=== PATIENT | female | born 1970 | race Caucasian/White ===

== ENCOUNTER 2022-11-10 19:40 | Emergency (ER) | payer OTHER ==
[~2022-11-10] VITALS: Ht 157.5 cm; Wt 92.5 kg
[2022-11-11] MEDS ORDERED: diazePAM 10MG/2ML SYRINGE IM ONE (04:05)
[2022-11-11] MEDS ORDERED: KETOROLAC 60MG 2ML VIAL IM ONE (04:25)
[2022-11-11 04:35] LABS: BASO # 0.1 10^3/uL (0.0-0.2); BASO % 0.7 % (0.0-1.0); EOS # 0.2 10^3/uL (0.0-0.5); EOS % 1.1 % (0.0-3.0); HEMATOCRIT 42.7 % (36.0-47.0); LYMPH # 4.8 10^3/uL (1.5-5.0); LYMPH % 29.8 % (24.0-44.0); MEAN CORPUSCULAR HEMOGLOBIN 27.8 pg (27.0-33.0); MEAN CORPUSCULAR HGB CONC 32.8 g/dl (32.0-36.5); MEAN CORPUSCULAR VOLUME 84.9 fl (80.0-96.0); MONO # 0.6 10^3/uL (0.0-0.8); MONO % 3.7 % (2.0-8.0); NEUTROPHILS # 10.4 10^3/uL (1.5-8.5); NEUTROPHILS % 64.3 % (36.0-66.0); PLATELET COUNT, AUTOMATED 471 10^3/uL (150-450); RED BLOOD COUNT 5.03 10^6/uL (4.00-5.40); WHITE BLOOD COUNT 16.2 10^3/uL (4.0-10.0)
[2022-11-11 04:50] LABS: ERYTHROCYTE SEDIMENTATION RATE 54 mm/hr (0-30)
[2022-11-11 04:57] LABS: BLOOD UREA NITROGEN 23 MG/DL (9-23); CALCIUM LEVEL 9.5 MG/DL (8.5-10.1); CARBON DIOXIDE LEVEL 24 MMOL/L (20-31); CHLORIDE LEVEL 101 MMOL/L (98-107); CREATININE FOR GFR 0.51 MG/DL (0.55-1.30); GLOMERULAR FILTRATION RATE > 60.0 (>51); GLUCOSE, FASTING 112 MG/DL (60-100); POTASSIUM SERUM 4.4 MMOL/L (3.5-5.1); SODIUM LEVEL 137 MMOL/L (136-145)
[2022-11-11 05:55] VITALS: BP 162/69
[2022-11-11] MEDS ORDERED: VALI2TAB PO ×2 (07:38→07:40)
[2022-11-11] MEDS ORDERED: CYCL5TAB PO (07:38)
[2022-11-12] MEDS ORDERED: UNRESOLVED CLARIFICATION ENTRY XX SCH (00:01)
== END 2022-11-11 08:38 | disposition home or self-care (01) ==
LOC: M ED 19:40
DX: M54.30 Sciatica, unspecified side (principal); M43.16 Spondylolisthesis, lumbar region; F41.9 Anxiety disorder, unspecified; M51.36 Other intervertebral disc degeneration, lumbar region; Z79.899 Other long term (current) drug therapy

== ENCOUNTER 2022-11-28 11:41 | Inpatient (IN) | payer OTHER ==
[~2022-11-28] VITALS: Ht 152.4 cm; Wt 96.2 kg
[~2022-11-28 11:41] MED LIST: AMLO1TAB25 PO; COLA100C5 PO; CYCL5TAB PO; DIPHCR TOP; GABA-1171 PO; GABA-282 PO; PERCOCET PO; RAME8TAB2 PO; TRAM50TA2 PO; VALI2TAB PO
[2022-11-28 16:00] VITALS: BP 132/79
[2022-11-28] MEDS: GABAPENTIN 300 MG CAP PO SCH (16:20)
[2022-11-28] MEDS: ACETAMINOPHEN TAB 650MG DOSE (2X325MG) PO PRN (18:19)
[2022-11-28] MEDS: DOCUSATE SODIUM 100MG CAPSULE PO SCH (20:01)
[2022-11-28] MEDS: SENNA 8.6 MG TAB (SENOKOT) PO SCH (20:02)
[2022-11-28] MEDS: GABAPENTIN 400MG CAP PO SCH (20:02)
[2022-11-28] MEDS: traMADol 50 MG TAB PO PRN (20:12)
[2022-11-28] MEDS ORDERED: ANALGESIC BALM CRM 3OZ TOP SCH (21:00)
[2022-11-28] MEDS ORDERED: RAMELTEON 8 MG TAB (ROZEREM) PO SCH (21:00)
[2022-11-29 04:51] VITALS: BP 138/79
[2022-11-29] MEDS: traMADol 50 MG TAB PO PRN ×2 (04:56→20:04)
[2022-11-29 06:17] LABS: HEMATOCRIT 38.6 % (36.0-47.0); HEMOGLOBIN 12.3 g/dl (12.0-15.5); MEAN CORPUSCULAR HEMOGLOBIN 27.3 pg (27.0-33.0); MEAN CORPUSCULAR HGB CONC 31.9 g/dl (32.0-36.5); MEAN CORPUSCULAR VOLUME 85.8 fl (80.0-96.0); PLATELET COUNT, AUTOMATED 390 10^3/uL (150-450); WHITE BLOOD COUNT 6.9 10^3/uL (4.0-10.0)
[2022-11-29 06:32] LABS: ALBUMIN 2.8 G/DL (3.2-5.2); ALKALINE PHOSPHATASE 51 U/L (46-116); ALT/SGPT 29 U/L (7.0-40); AST/SGOT 17 U/L (<34); BILIRUBIN,TOTAL 0.2 MG/DL (0.3-1.2); BLOOD UREA NITROGEN 13 MG/DL (9-23); CALCIUM LEVEL 8.7 MG/DL (8.5-10.1); CARBON DIOXIDE LEVEL 26 MMOL/L (20-31); CHLORIDE LEVEL 101 MMOL/L (98-107); CREATININE FOR GFR 0.39 MG/DL (0.55-1.30); GLOMERULAR FILTRATION RATE > 60.0 (>51); GLUCOSE, FASTING 102 MG/DL (60-100); SODIUM LEVEL 135 MMOL/L (136-145); TOTAL PROTEIN 7.9 G/DL (5.7-8.2)
[2022-11-29 07:01] LABS: ATYPICAL LYMPH 5 % (0-5); BASOPHILS 1 % (0-1); EOSINOPHILS 7 % (0-3); LYMPHOCYTES 27 % (16-44); MONOCYTES 9 % (0-5); NEUTROPHILS 51 % (28-66); PLATELET ESTIMATE NORMAL (NORMAL)
[2022-11-29] MEDS ORDERED: predniSONE 20 MG TAB PO ONE (08:30)
[2022-11-29] MEDS: DOCUSATE SODIUM 100MG CAPSULE PO SCH ×2 (08:50→20:04)
[2022-11-29] MEDS: GABAPENTIN 300 MG CAP PO SCH ×2 (08:51→14:45)
[2022-11-29] MEDS: ENOXAPARIN 40MG/0.4ML SYRINGE (J1650 PER 10MG) SC SCH (08:51)
[2022-11-29] MEDS: PANTOPRAZOLE 40MG TAB (PROTONIX) PO SCH (08:51)
[2022-11-29 14:00] VITALS: BP 120/67
[2022-11-29] MEDS: diphenhydrAMINE CREAM 30GM TOP SCH ×2 (14:46→20:07)
[2022-11-29] MEDS ORDERED: FLEET ENEMA PR ONE (15:45)
[2022-11-29] MEDS ORDERED: AMITRIPTYLINE 10MG TABLET PO ONE (16:00)
[2022-11-29] MEDS: SIMETHICONE 80MG CHEW TAB PO SCH ×2 (16:19→20:04)
[2022-11-29] MEDS: BISACODYL 5MG TAB PO SCH (16:21)
[2022-11-29 20:00] VITALS: BP 138/72
[2022-11-29] MEDS: SENNA 8.6 MG TAB (SENOKOT) PO SCH (20:04)
[2022-11-29] MEDS: GABAPENTIN 400MG CAP PO SCH (20:04)
[2022-11-29] MEDS ORDERED: AMITRIPTYLINE 10MG TABLET PO SCH (21:00)
[2022-11-30] MEDS: RAMELTEON 8 MG TAB (ROZEREM) PO PRN ×2 (00:21→21:21)
[2022-11-30] MEDS: ACETAMINOPHEN TAB 650MG DOSE (2X325MG) PO PRN (00:21)
[2022-11-30 06:00] VITALS: BP 138/89
[2022-11-30] MEDS: predniSONE 20 MG TAB PO SCH (08:45)
[2022-11-30] MEDS: SIMETHICONE 80MG CHEW TAB PO SCH ×3 (08:45→21:00)
[2022-11-30] MEDS: GABAPENTIN 300 MG CAP PO SCH ×2 (08:45→14:08)
[2022-11-30] MEDS: DOCUSATE SODIUM 100MG CAPSULE PO SCH ×2 (08:45→21:00)
[2022-11-30] MEDS: ENOXAPARIN 40MG/0.4ML SYRINGE (J1650 PER 10MG) SC SCH (08:45)
[2022-11-30] MEDS: BISACODYL 5MG TAB PO SCH (08:45)
[2022-11-30] MEDS: PANTOPRAZOLE 40MG TAB (PROTONIX) PO SCH (08:46)
[2022-11-30] MEDS: diphenhydrAMINE CREAM 30GM TOP SCH ×2 (08:49→21:24)
[2022-11-30] MEDS: AMITRIPTYLINE 10MG TABLET PO SCH ×2 (11:46→21:22)
[2022-11-30 14:00] VITALS: BP 132/77
[2022-11-30 20:00] VITALS: BP 126/70
[2022-11-30] MEDS: SENNA 8.6 MG TAB (SENOKOT) PO SCH (21:00)
[2022-11-30] MEDS: GABAPENTIN 400MG CAP PO SCH (21:21)
[2022-11-30] MEDS: traMADol 50 MG TAB PO PRN (21:22)
[2022-12-01 06:00] VITALS: BP 128/66
[2022-12-01 06:44] LABS: BASO # 0.1 10^3/uL (0.0-0.2); BASO % 0.8 % (0.0-1.0); EOS # 0.2 10^3/uL (0.0-0.5); HEMATOCRIT 36.7 % (36.0-47.0); HEMOGLOBIN 11.7 g/dl (12.0-15.5); LYMPH # 3.9 10^3/uL (1.5-5.0); LYMPH % 40.6 % (24.0-44.0); MEAN CORPUSCULAR HEMOGLOBIN 27.3 pg (27.0-33.0); MEAN CORPUSCULAR HGB CONC 31.9 g/dl (32.0-36.5); MEAN CORPUSCULAR VOLUME 85.7 fl (80.0-96.0); MONO # 0.5 10^3/uL (0.0-0.8); MONO % 5.1 % (2.0-8.0); NEUTROPHILS % 51.2 % (36.0-66.0); PLATELET COUNT, AUTOMATED 387 10^3/uL (150-450); RED BLOOD COUNT 4.28 10^6/uL (4.00-5.40); WHITE BLOOD COUNT 9.7 10^3/uL (4.0-10.0)
[2022-12-01 07:19] LABS: BLOOD UREA NITROGEN 15 MG/DL (9-23); CALCIUM LEVEL 8.1 MG/DL (8.5-10.1); CARBON DIOXIDE LEVEL 25 MMOL/L (20-31); CHLORIDE LEVEL 105 MMOL/L (98-107); CREATININE FOR GFR 0.44 MG/DL (0.55-1.30); GLOMERULAR FILTRATION RATE > 60.0 (>51); GLUCOSE, FASTING 81 MG/DL (60-100); POTASSIUM SERUM 3.8 MMOL/L (3.5-5.1); SODIUM LEVEL 139 MMOL/L (136-145)
[2022-12-01] MEDS: BISACODYL 5MG TAB PO SCH (09:00)
[2022-12-01] MEDS: DOCUSATE SODIUM 100MG CAPSULE PO SCH ×2 (09:00→20:53)
[2022-12-01] MEDS: AMITRIPTYLINE 10MG TABLET PO SCH ×2 (09:11→21:02)
[2022-12-01] MEDS: GABAPENTIN 300 MG CAP PO SCH ×3 (09:11→21:03)
[2022-12-01] MEDS: predniSONE 20 MG TAB PO SCH (09:11)
[2022-12-01] MEDS: SIMETHICONE 80MG CHEW TAB PO SCH ×3 (09:11→21:02)
[2022-12-01] MEDS: PANTOPRAZOLE 40MG TAB (PROTONIX) PO SCH (09:11)
[2022-12-01] MEDS: diphenhydrAMINE CREAM 30GM TOP SCH (09:12)
[2022-12-01] MEDS: ENOXAPARIN 40MG/0.4ML SYRINGE (J1650 PER 10MG) SC SCH (09:12)
[2022-12-01] MEDS: LIDOCAINE 4% CREAM 5GM (LMX4) TOP SCH ×2 (18:10→21:03)
[2022-12-01 20:00] VITALS: BP 132/82
[2022-12-01] MEDS: SENNA 8.6 MG TAB (SENOKOT) PO SCH (20:53)
[2022-12-01] MEDS: RAMELTEON 8 MG TAB (ROZEREM) PO PRN (21:03)
[2022-12-01] MEDS ORDERED: traZODone 25MG PER 1/2 TABLET PO ONE (23:25)
[2022-12-02 06:49] VITALS: BP 142/79
[2022-12-02] MEDS: AMITRIPTYLINE 10MG TABLET PO SCH ×2 (09:25→21:59)
[2022-12-02] MEDS: SIMETHICONE 80MG CHEW TAB PO SCH ×3 (09:25→21:59)
[2022-12-02] MEDS: predniSONE 20 MG TAB PO SCH (09:25)
[2022-12-02] MEDS: GABAPENTIN 300 MG CAP PO SCH ×3 (09:25→21:59)
[2022-12-02] MEDS: ENOXAPARIN 40MG/0.4ML SYRINGE (J1650 PER 10MG) SC SCH (09:25)
[2022-12-02] MEDS: DOCUSATE SODIUM 100MG CAPSULE PO SCH ×2 (09:25→21:00)
[2022-12-02] MEDS: PANTOPRAZOLE 40MG TAB (PROTONIX) PO SCH (09:25)
[2022-12-02] MEDS: BISACODYL 5MG TAB PO SCH (09:26)
[2022-12-02] MEDS: LIDOCAINE 4% CREAM 5GM (LMX4) TOP SCH ×3 (09:33→22:00)
[2022-12-02] MEDS: ACETAMINOPHEN TAB 650MG DOSE (2X325MG) PO PRN ×2 (11:45→20:11)
[2022-12-02 14:00] VITALS: BP 129/64
[2022-12-02 20:00] VITALS: BP 129/75
[2022-12-02] MEDS: SENNA 8.6 MG TAB (SENOKOT) PO SCH (21:00)
[2022-12-02] MEDS: RAMELTEON 8 MG TAB (ROZEREM) PO PRN (21:59)
[2022-12-02] MEDS ORDERED: IBUPROFEN 600MG TAB PO ONE (23:25)
[2022-12-03] MEDS: ACETAMINOPHEN TAB 650MG DOSE (2X325MG) PO PRN ×2 (05:08→20:59)
[2022-12-03 05:34] VITALS: BP 163/83
[2022-12-03] MEDS: DOCUSATE SODIUM 100MG CAPSULE PO SCH ×2 (09:26→21:00)
[2022-12-03] MEDS: SIMETHICONE 80MG CHEW TAB PO SCH ×3 (09:26→20:59)
[2022-12-03] MEDS: AMITRIPTYLINE 10MG TABLET PO SCH ×2 (09:26→20:59)
[2022-12-03] MEDS: predniSONE 20 MG TAB PO SCH (09:26)
[2022-12-03] MEDS: GABAPENTIN 300 MG CAP PO SCH ×3 (09:27→20:59)
[2022-12-03] MEDS: BISACODYL 5MG TAB PO SCH (09:27)
[2022-12-03] MEDS: ENOXAPARIN 40MG/0.4ML SYRINGE (J1650 PER 10MG) SC SCH (09:27)
[2022-12-03] MEDS: PANTOPRAZOLE 40MG TAB (PROTONIX) PO SCH (09:27)
[2022-12-03] MEDS: LIDOCAINE 4% CREAM 5GM (LMX4) TOP SCH ×3 (09:28→21:00)
[2022-12-03 14:00] VITALS: BP 134/71
[2022-12-03 20:05] VITALS: BP 139/85
[2022-12-03] MEDS: RAMELTEON 8 MG TAB (ROZEREM) PO PRN (20:59)
[2022-12-03] MEDS: SENNA 8.6 MG TAB (SENOKOT) PO SCH (21:00)
[2022-12-03] MEDS ORDERED: IBUPROFEN 600MG TAB PO PRN (22:25)
[2022-12-04 06:00] VITALS: BP 139/72
[2022-12-04 07:23] VITALS: BP 139/72
[2022-12-04] MEDS: PANTOPRAZOLE 40MG TAB (PROTONIX) PO SCH (07:23)
[2022-12-04] MEDS: ACETAMINOPHEN TAB 650MG DOSE (2X325MG) PO PRN (07:23)
[2022-12-04] MEDS: GABAPENTIN 300 MG CAP PO SCH (07:23)
[2022-12-04] MEDS: AMITRIPTYLINE 10MG TABLET PO SCH (07:23)
[2022-12-04] MEDS: SIMETHICONE 80MG CHEW TAB PO SCH (07:23)
[2022-12-04] MEDS: ENOXAPARIN 40MG/0.4ML SYRINGE (J1650 PER 10MG) SC SCH (07:24)
[2022-12-04] MEDS: LIDOCAINE 4% CREAM 5GM (LMX4) TOP SCH (07:25)
[2022-12-04] MEDS: DOCUSATE SODIUM 100MG CAPSULE PO SCH (09:00)
[2022-12-04] MEDS: BISACODYL 5MG TAB PO SCH (09:00)
[2022-12-04] MEDS ORDERED: GABA-283 PO (11:19)
[2022-12-04] MEDS ORDERED: AMLO1TAB25 PO (11:19)
[2022-12-04] MEDS ORDERED: AMIT10TA7 PO (11:19)
[2022-12-04] MEDS ORDERED: HYDR-3363 PO (11:19)
== END 2022-12-04 11:50 | disposition home or self-care (01) | DRG 96 ==
LOC: M PM&R 15:07
PROVIDERS: ADMIT Physical Medicine & Rehabilitation; ATTEND Physical Medicine & Rehabilitation
DX: G61.0 Guillain-Barre syndrome (principal); R91.8 Other nonspecific abnormal finding of lung field; M21.371 Foot drop, right foot; E66.9 Obesity, unspecified; I10 Essential (primary) hypertension; R26.89 Other abnormalities of gait and mobility; M41.9 Scoliosis, unspecified; G51.0 Bell's palsy; M48.061 Spinal stenosis, lumbar region without neurogenic claudication; M48.02 Spinal stenosis, cervical region; G47.30 Sleep apnea, unspecified; Z74.09 Other reduced mobility; Z74.1 Need for assistance with personal care; K59.00 Constipation, unspecified; R21 Rash and other nonspecific skin eruption; M19.90 Unspecified osteoarthritis, unspecified site; Z79.899 Other long term (current) drug therapy; J30.2 Other seasonal allergic rhinitis